=== PATIENT | male | born 1975 | race Caucasian/White ===

== ENCOUNTER 2016-11-12 20:00 | Emergency (ER) | payer OTHER ==
[~2016-11-12] VITALS: Ht 180.3 cm; Wt 99.8 kg
--- NOTE | ~2016-11-12 | CR142 ---
[facility] A Service of [facility] & [facility] RADIOLOGY TEXT RESULTS PATIENT: RAZA CONTRERAS LOCATION: [facility] : 77 UNIT #: [id number] AGE: [address]: Jimmy Amador DO SEX: M ORDER DR: [id number] [facility] [address] [place], [place] [address] [id number] E MR#: [id number] Acc #: [id number] NAME: RAZA CONTRERAS : 1975 SEX: M STUDY DATE/TIME: 11/12/2016 21:34 UNIT: [facility] ROOM: STUDY DESCRIPTION: CR Hand Min 3 Views Rt Attending Physician: Jimmy Amador D.O. Ordering Physician: Jimmy Amador D.O. Primary Care Physician: Melisa Sanchez M.D. MEDICAL IMAGING REPORT This report is preliminary unless electronic signature is present EXAM Right hand INDICATION Swelling and pain in the right hand. 1-week duration. FINDINGS 3 views of the right hand without comparison. There is no acute fracture or dislocation. There is a fracture pin within the proximal third metacarpal. There is a prior fracture of the third metacarpal. There is some dorsal soft tissue swelling. No acute osseous abnormalities. IMPRESSION 1. Dorsal soft tissue swelling. 2. Fractured pin the third metacarpal, presumably from prior surgical pinning. 3. No new osseous abnormalities. Dictated by... Dontae Gifford M.D. THIS IS AN ELECTRONICALLY VERIFIED REPORT Dontae Gifford M.D. at 11/14/2016 10:35 AM VIDA/nixon TD: 11/13/2016 10:07 JOB #: [id number] MEDICAL IMAGING REPORT Page 1 of 1 COPY
== END 2016-11-12 23:10 | disposition home or self-care (01) ==
LOC: CED 20:00
DX: M77.9 Enthesopathy, unspecified (principal); I10 Essential (primary) hypertension; M25.511 Pain in right shoulder; F17.210 Nicotine dependence, cigarettes, uncomplicated; Z88.8 Allergy status to other drugs, medicaments and biological substances
CPT/HCPCS: 29130; 73130; 99283